=== PATIENT | female | born 1960 | race Asian ===

== ENCOUNTER 2018-06-08 15:47 | Emergency (ER) | payer MEDICAID, OTHER ==
[~2018-06-08] VITALS: Ht 162.6 cm; Wt 56.7 kg
[2018-06-08] MEDS ORDERED: Phenazopyridine 200mg tab ORAL ONE (16:15)
[2018-06-08 16:32] LABS: APPEARANCE,URINE CLEAR; BILIRUBIN, URINE NEGATIVE (NEGATIVE); COLOR,URINE PALE YELLOW; GLUCOSE, URINE (UA) NEGATIVE (NEGATIVE); KETONES,URINE NEGATIVE (NEGATIVE); LEUKOCYTE ESTERASE ,URINE 2+ (NEGATIVE); NITRITE,URINE NEGATIVE (NEGATIVE); PH,URINE 7 (4.5-8.0); PROTEIN,URINE NEGATIVE (NEGATIVE); UROBILINOGEN,URINE NORMAL MG/DL (0.0-1.0)
[2018-06-08 16:35] VITALS: BP 167/87
--- NOTE | 2018-06-08 16:51 | Emergency Room Report ---
History of Present Illness General Chief Complaint: Female Urogenital Problems Source: Patient Present Illness HPI 58-year-old female presents to the emergency department complaining of 2 out of 10 in severity dysuria with intermittent hematuria times one week. Patient also reports urinary frequency and urgency. Patient night is fevers, chills, low back pain, nausea, vomiting or abdominal tenderness. She denies history of renal disease reports hypertension and diabetes. Allergies: Coded Allergies: No Known Allergies (Unverified , 06/08/18) Patient History Past Medical History: see triage record Past Surgical History: none Pertinent Family History: none Last Menstrual Period: na Now: No Reviewed Nursing Documentation: PMH: Agreed; PSxH: Agreed Nursing Documentation-PMH Past Medical History: No History, Except For Hx Hypertension: Yes Hx Diabetes: Yes Hx Cancer: Yes - liver Review of Systems All Other Systems: negative except mentioned in HPI Physical Exam Vital Signs Date Time Temp Pulse Resp B/P (MAP) Pulse Ox O2 Delivery O2 Flow Rate FiO2 06/08/18 15:55 98.5 96 16 206/95 98 Room Air 98.4 Sp02 EP Interpretation: reviewed, normal General Appearance: no apparent distress, alert, GCS 15, non-toxic Head: normocephalic, atraumatic ENT: hearing grossly normal, normal voice Neck: full range of motion Respiratory: lungs clear, normal breath sounds, speaking full sentences Cardiovascular #1: regular rate, rhythm Gastrointestinal: normal bowel sounds, non tender, soft, non-distended, no guarding Rectal: deferred Genitourinary: normal inspection, no CVA tenderness Musculoskeletal: back normal, gait/station normal, normal range of motion, non- tender Neurologic: alert, oriented x3, responsive, motor strength/tone normal, sensory intact, speech normal, grossly normal Psychiatric: judgement/insight normal Skin: normal color, no rash, warm/dry, well hydrated Medical Decision Making PA Attestation Dr. Moses is my supervising Physician whom patient management has been discussed with. Diagnostic Impression: Primary Impression: Urinary tract infection Qualified Codes: N30.01 - Acute cystitis with hematuria Additional Impression: Urinary urgency ER Course Pt. presents to the ED c/o dysuria, and urinary urgency x 1 week. Ddx considered but are not limited to UTi , Pyelo, STI, Stone, Cystitis Vital signs: are WNL, pt. is afebrile H&PE are most consistent with UTI ORDERS: - UA labs are attached -symptomatic pt. with: elevated inflammatory markers, presence of few bacteria. as pt ED INTERVENTIONS: -Pyridium PO DISCHARGE: At this time pt. is stable for d/c to home. Will provide printed patient care instructions, and any necessary prescriptions. Care plan and follow up instructions have been discussed with the patient prior to discharge. Labs Test 06/08/18 16:10 Urine Color Pale yellow Urine Appearance Clear Urine pH 7 (4.5-8.0) Urine Specific [place] 1.005 (1.005-1.035) Urine Protein Negative (NEGATIVE) Urine Glucose (UA) Negative (NEGATIVE) Urine Ketones Negative (NEGATIVE) Urine Blood 2+ (NEGATIVE) Urine Nitrite Negative (NEGATIVE) Urine Bilirubin Negative (NEGATIVE) Urine Urobilinogen Normal MG/DL (0.0-1.0) Urine Leukocyte Esterase 2+ (NEGATIVE) Urine RBC 2-4 /HPF (0 - 2) Urine WBC 10-15 /HPF (0 - 2) Urine Squamous Epithelial Cells Moderate /LPF (NONE/OCC) Urine Bacteria Few /HPF (NONE) Last Vital Signs Date Time Temp Pulse Resp B/P (MAP) Pulse Ox O2 Delivery O2 Flow Rate FiO2 06/08/18 15:55 98.5 96 16 206/95 98 Room Air 98.4 Disposition: HOME, SELF-CARE Condition: Stable Scripts Nitrofurantoin Monohyd/M-Cryst* (MACROBID 100 MG*) 100 Mg Capsule 100 MG ORAL EVERY 12 HOURS for 5 Days, #10 CAP Prov: Mila Glass 06/08/18 Phenazopyridine Hcl* (PYRIDIUM*) 100 Mg Tablet 100 MG ORAL THREE TIMES A DAY, #9 TAB Prov: Mila Glass 06/08/18 Patient Instructions: Urinary Tract Infection Additional Instructions: Take medications as directed. Follow up with a Primary Care Provider in 3-5 days, even if your symptoms have resolved. --Please review list of primary care clinics, if you do not already have a primary care provider Return sooner to ED if new symptoms occur, or current symptoms become worse. - Please note that this Emergency Department Report was dictated using [employer] worker technology software, occasionally this can lead to erroneous entry secondary to interpretation by the dictation equipment. Mila Glass Jun 08, 2018 16:51
[2018-06-08] MEDS ORDERED: PHENAZOPYRIDIN100 MG ORAL (16:53)
[2018-06-08] MEDS ORDERED: NITROFURANTOIN100 M2 ORAL (16:53)
[2018-06-08 17:40] VITALS: BP 167/87
== END 2018-06-08 17:00 | disposition home or self-care (01) ==
LOC: EMR 16:20
DX: N39.0 Urinary tract infection, site not specified (principal); R30.0 Dysuria; I10 Essential (primary) hypertension; E11.9 Type 2 diabetes mellitus without complications; Z85.05 Personal history of malignant neoplasm of liver
CPT/HCPCS: 81003; 87086; 99283

== ENCOUNTER → 2018-11-02 | Emergency (ER) | payer OTHER ==
[~2018-11-02] VITALS: Ht 160 cm; Wt 54.4 kg
[~2018-11-02] MED LIST: LENVIMA4 MG PO; METFORMIN HCL500 M1 ORAL; Metoprolol 5mg/5ml Inj IVP ONE; NADOLOL20 MG ORAL; NITROFURANTOIN100 M2 ORAL; PHENAZOPYRIDIN100 MG ORAL
--- NOTE | 2018-11-02 10:38 | NUR ---
Note cathi in EDM - 11/02/18 at 1559 by [email or web address] ED Nurse Note: BLOOD SPECIMENS SENT DOWN TO THE LAB.
--- NOTE | 2018-11-02 10:48 | NUR ---
ED Nurse Note: AMBULATED IN TO ER FROM HOME WITH PT'S DAUGHTER DUE TO HIGH BLOOD PRESSURE. PER PT'S DAUGHTER, PT RECENTLY CHANGED MEDICATION FOR LIVER CANCER- LENVIMA 8MG QD AND CAUSED PT TO HAVE HIGH BP AND ALTER MENTAL STATUS. PT STOPPED TAKING THE MEDICATION LAST NIGHT AND A/OX4 AT THE BEDSIDE. DENIES CP AND SOB.
[2018-11-02 10:50] VITALS: BP 216/105
--- NOTE | 2018-11-02 10:55 | NUR ---
ED Nurse Note: BLOOD SPECIMENS SENT DOWN TO THE LAB.
--- NOTE | 2018-11-02 11:07 | Emergency Room Report ---
History of Present Illness General Chief Complaint: Hypertension Source: Patient, Family Member, Medical Record Present Illness HPI Patient presents with complaints of elevated blood pressure Daughter reports that the patient was diagnosed with liver cancer about 2 years ago she has started a new medications about 2 weeks ago and since then the patient's blood pressure appears to be elevated more than usual The daughter has flown in from [place] as she felt that her mom sounded more confused for the past 2 days however today appears to be better There was no reports of vomiting or diarrhea patient herself denies any chest pain denies any back or flank pain Allergies: Coded Allergies: No Known Allergies (Unverified , 06/08/18) Patient History Past Medical History: see triage record Pertinent Family History: none Reviewed Nursing Documentation: PMH: Agreed; PSxH: Agreed Nursing Documentation-PMH Past Medical History: No History, Except For Hx Hypertension: Yes Hx Diabetes: Yes Hx Cancer: Yes - liver Review of Systems All Other Systems: negative except mentioned in HPI Physical Exam Vital Signs Date Time Temp Pulse Resp B/P (MAP) Pulse Ox O2 Delivery O2 Flow Rate FiO2 11/02/18 10:41 97.5 89 16 183/87 96 Room Air Sp02 EP Interpretation: reviewed, normal General Appearance: no apparent distress - jaundice Head: normocephalic, atraumatic Eyes: bilateral eye PERRL, bilateral eye EOMI ENT: hearing grossly normal, normal pharynx, TMs + canals normal, uvula midline Neck: full range of motion, supple, no meningismus, no bony tend Respiratory: lungs clear, normal breath sounds, no rhonchi, no respiratory distress, no retraction, no accessory muscle use Cardiovascular #1: normal peripheral pulses, regular rate, rhythm, no edema, no gallop, no JVD, no murmur Gastrointestinal: normal bowel sounds, non tender, soft, non-distended, no guarding, no hernia, no pulsatile mass, no rebound Genitourinary: no CVA tenderness Musculoskeletal: normal inspection Neurologic: oriented x3, responsive, car supplier III-XII nml as tested, motor strength/ tone normal, sensory intact Psychiatric: mood/affect normal Skin: other - General jaundiced appearance Lymphatic: normal inspection, no adenopathy Medical Decision Making Diagnostic Impression: Primary Impression: Hypertension Additional Impressions: Hypertensive urgency, malignant Encephalopathy ER Course Given the patient's history and presentation multiple differentials and consideration CT head does not show any acute pathology Patient's blood work reveals a mildly elevated ammonia with some associated encephalopathy patient's blood pressure required acute intervention patient is in concerning presentation and will require further inpatient care Labs Test 11/02/18 11:10 White Blood Count 6.3 K/UL (4.8-10.8) Red Blood Count 4.13 M/UL (4.20-5.40) Hemoglobin 11.7 G/DL (12.0-16.0) Hematocrit 36.3 % (37.0-47.0) Mean Corpuscular Volume 88 FL (80-99) Mean Corpuscular Hemoglobin 28.3 PG (27.0-31.0) Mean Corpuscular Hemoglobin Concent 32.2 G/DL (32.0-36.0) Red Cell Distribution Width 17.2 % (11.6-14.8) Platelet Count 86 K/UL (150-450) Mean Platelet Volume 7.5 FL (6.5-10.1) Neutrophils (%) (Auto) % (45.0-75.0) Lymphocytes (%) (Auto) % (20.0-45.0) Monocytes (%) (Auto) % (1.0-10.0) Eosinophils (%) (Auto) % (0.0-3.0) Basophils (%) (Auto) % (0.0-2.0) Differential Total Cells Counted 100 Neutrophils % (Manual) 55 % (45-75) Lymphocytes % (Manual) 34 % (20-45) Monocytes % (Manual) 10 % (1-10) Eosinophils % (Manual) 1 % (0-3) Basophils % (Manual) 0 % (0-2) Band Neutrophils 0 % (0-8) Platelet Estimate Decreased Platelet Morphology Normal Anisocytosis 1+ Sodium Level 130 MMOL/L (136-145) Potassium Level 4.3 MMOL/L (3.5-5.1) Chloride Level 98 MMOL/L (98-107) Carbon Dioxide Level 25 MMOL/L (21-32) Anion Gap 7 mmol/L (5-15) Blood Urea Nitrogen 14 mg/dL (7-18) Creatinine 1.0 MG/DL (0.55-1.30) Estimat Glomerular Filtration Rate 56.9 mL/min (>60) Glucose Level 385 MG/DL (74-106) Calcium Level 9.3 MG/DL (8.5-10.1) Total Bilirubin 0.9 MG/DL (0.2-1.0) Aspartate Amino Transf (AST/SGOT) 42 U/L (15-37) Alanine Aminotransferase (ALT/SGPT) 41 U/L (12-78) Alkaline Phosphatase 162 U/L (46-116) Ammonia 36 umol/L (11-32) Total Creatine Kinase 73 U/L (26-308) Creatine Kinase MB 1.1 NG/ML (0.0-3.6) Creatine Kinase MB Relative Index 1.5 Troponin I 0.000 ng/mL (0.000-0.056) Total Protein 8.3 G/DL (6.4-8.2) Albumin 2.6 G/DL (3.4-5.0) Globulin 5.7 g/dL Albumin/Globulin Ratio 0.5 (1.0-2.7) Rhythm Strip Diag. Results EP Interpretation: yes Rate: 80 Rhythm: NSR, no PVC's, no ectopy CT/MRI/US Diagnostic Results CT/MRI/US Diagnostic Results : Impression CT head no acute disease Last Vital Signs Date Time Temp Pulse Resp B/P (MAP) Pulse Ox O2 Delivery O2 Flow Rate FiO2 11/02/18 10:41 97.5 89 16 183/87 96 Room Air Status: improved Disposition: [facility] Condition: Serious Shant Monroy Nov 02, 2018 11:07
--- NOTE | 2018-11-02 11:21 | NUR ---
ED Nurse Note: pt went down for CT
[2018-11-02 11:28] LABS: HEMATOCRIT 36.3 % (37.0-47.0); HEMOGLOBIN 11.7 G/DL (12.0-16.0); MEAN CORPUSCULAR VOLUME 88 FL (80-99); PLATELET COUNT 86 K/UL (150-450); RED BLOOD COUNT 4.13 M/UL (4.20-5.40); RED CELL DISTRIBUTION WIDTH 17.2 % (11.6-14.8); WHITE BLOOD COUNT 6.3 K/UL (4.8-10.8)
[2018-11-02 11:30] LABS: ANION GAP 7 mmol/L (5-15); BLOOD UREA NITROGEN 14 mg/dL (7-18); CALCIUM 9.3 MG/DL (8.5-10.1); CARBON DIOXIDE 25 MMOL/L (21-32); CHLORIDE 98 MMOL/L (98-107); POTASSIUM 4.3 MMOL/L (3.5-5.1); SODIUM 130 MMOL/L (136-145)
--- NOTE | 2018-11-02 11:31 | NUR ---
ED Nurse Note: PT CAME BACK FROM CT. REMAINS STABLE. DENIES CP NOR SOB.
[2018-11-02 11:44] LABS: ALANINE AMINOTRANSFERASE 41 U/L (12-78); ALBUMIN 2.6 G/DL (3.4-5.0); ALBUMIN/GLOBULIN RATIO 0.5 (1.0-2.7); ALKALINE PHOSPHATASE 162 U/L (46-116); ASPARTATE AMINO TRANSFERASE 42 U/L (15-37); BILIRUBIN,TOTAL 0.9 MG/DL (0.2-1.0); CKMB 1.1 NG/ML (0.0-3.6); CREATINE KINASE 73 U/L (26-308)
--- NOTE | 2018-11-02 12:32 | Diagnostic Imaging Report ---
Indication: Altered mental status Technique: Contiguous 5 mm thick transaxial imaging of the head obtained in a Siemens Sensation [address] scanner. Soft tissue and bone windows generated. Automatic Exposure Control was utilized. Total Dose length Product (DLP): 1200.[address] Dose Index Volume (CTDIvol): 70.38 mGy Comparison: none Findings: The size and configuration of the cortical sulci, basal cisterns, and ventricles are within normal limits for age. There is no mass effect, midline shift, or edema identified. There is no evidence of acute hemorrhage or abnormal intra-axial or extra-axial fluid collections. The bones and soft tissues are unremarkable. Impression: No mass effect, edema or acute bleed. The CT scanner at [facility] is accredited by the [employer] and the scans are performed using dose optimization techniques as appropriate to a performed exam including Automatic Exposure control.
[2018-11-02 13:07] VITALS: BP 205/84
--- NOTE | 2018-11-02 15:05 | NUR ---
HAND-OFF: Report given to STEPHANI Prieto. Pt and pt's daughter made aware of the transfer. Pt remains stable. BP of 183/102
--- NOTE | 2018-11-02 15:50 | NUR ---
ED Nurse Note: Patient's blood pressure was 194/85, Dr. Bran notified and aware, received orders for hydralazine
[2018-11-02 17:05] VITALS: BP 141/64
[2018-11-02 17:10] VITALS: BP 152/72
--- NOTE | 2018-11-02 17:10 | NUR ---
ED Nurse Note: Gave report to STEPHANI Powell
--- NOTE | 2018-11-03 17:25 | Cardiology Report ---
APPROVED REPORT EKG Measurement Heart [id number] Normal sinus rhythm Voltage criteria for left ventricular hypertrophy Nonspecific ST abnormality Abnormal ECG
== END | disposition short-term general hospital (02) ==
LOC: EMR 11:20
DX: I10 Essential (primary) hypertension (principal); I16.0 Hypertensive urgency; G93.40 Encephalopathy, unspecified; E11.9 Type 2 diabetes mellitus without complications; Z85.05 Personal history of malignant neoplasm of liver
CPT/HCPCS: 36415; 70450; 80053; 82140; 82550; 82553; 84484; 85007; 85025; 93005; 96374; 96375; 99284; J0360

== ENCOUNTER 2018-11-30 11:43 | Emergency (ER) | payer OTHER ==
[~2018-11-30] VITALS: Ht 160 cm; Wt 55.3 kg
[~2018-11-30 11:43] MED LIST changes: -Metoprolol 5mg/5ml Inj IVP ONE
[2018-11-30] MEDS ORDERED: RANITIDINE HCL150 M1 ORAL (11:53)
[2018-11-30] MEDS ORDERED: Lidocaine 2% Visc 15ml soln ORAL ONE (12:00)
[2018-11-30] MEDS ORDERED: Isovue-300 100ml vial INJ PRN (12:00)
[2018-11-30] MEDS ORDERED: Mylanta II UD 30ml ORAL ONE (12:00)
--- NOTE | 2018-11-30 12:00 | NUR ---
ED Nurse Note: Pt came into the Er w/ complaints of abdominal pain since 2200 last night. Pt is complaining of 10/10 pain. Non radiating. Pt denies diarrhea. Pt has had 3 episodes of vomiting since last night w/ nausea. Pt is A + O x4. Ambulatory. Skin warm to touch.
[2018-11-30 12:23] LABS: HEMATOCRIT 37.9 % (37.0-47.0); HEMOGLOBIN 12.7 G/DL (12.0-16.0); MEAN CORPUSCULAR VOLUME 88 FL (80-99); PLATELET COUNT 134 K/UL (150-450); RED BLOOD COUNT 4.31 M/UL (4.20-5.40); RED CELL DISTRIBUTION WIDTH 15.6 % (11.6-14.8); WHITE BLOOD COUNT 11.5 K/UL (4.8-10.8)
[2018-11-30 12:28] VITALS: BP 212/91
[2018-11-30 12:37] LABS: ANION GAP 13 mmol/L (5-15); BLOOD UREA NITROGEN 13 mg/dL (7-18); CALCIUM 9.4 MG/DL (8.5-10.1); CARBON DIOXIDE 23 MMOL/L (21-32); CHLORIDE 91 MMOL/L (98-107); CREATININE 0.9 MG/DL (0.55-1.30); POTASSIUM 4.4 MMOL/L (3.5-5.1); SODIUM 127 MMOL/L (136-145)
[2018-11-30 12:47] LABS: ALANINE AMINOTRANSFERASE 209 U/L (12-78); ALBUMIN/GLOBULIN RATIO 0.5 (1.0-2.7); ALKALINE PHOSPHATASE 501 U/L (46-116); ASPARTATE AMINO TRANSFERASE 299 U/L (15-37); BILIRUBIN,TOTAL 5.8 MG/DL (0.2-1.0)
--- NOTE | 2018-11-30 13:05 | NUR ---
ED Nurse Note: Pt went down to CT.
--- NOTE | 2018-11-30 13:10 | Emergency Room Report ---
History of Present Illness General Chief Complaint: Abdominal Pain Source: Patient Present Illness HPI This patient is accompanied by her . She states that her symptoms started around 10pm last night. She states that she is also had recurrent nausea and vomiting ever since 10 PM last night. She states that her pain is primarily in her upper abdomen. She has no history of similar pain. She denies fever or chills. She denies dysuria or hematuria. She denies diarrhea. She has no other complaints. Allergies: Coded Allergies: No Known Allergies (Unverified , 11/30/18) Patient History Past Medical History: see triage record, DM, HTN, other - Liver cancer Social History: Denies: smoking, alcohol use, drug use Last Menstrual Period: menopause Reviewed Nursing Documentation: PMH: Agreed; PSxH: Agreed Nursing Documentation-PMH Past Medical History: No History, Except For Hx Hypertension: Yes Hx Diabetes: Yes Hx Cancer: Yes - liver Review of Systems All Other Systems: negative except mentioned in HPI Physical Exam Vital Signs Date Time Temp Pulse Resp B/P (MAP) Pulse Ox O2 Delivery O2 Flow Rate FiO2 11/30/18 11:47 97.9 81 16 212/98 98 Room Air 11/30/18 12:28 100 Sp02 EP Interpretation: reviewed, normal General Appearance: no apparent distress, alert, GCS 15, non-toxic Head: normocephalic, atraumatic Eyes: bilateral eye normal inspection, bilateral eye PERRL ENT: hearing grossly normal, normal pharynx, no angioedema, normal voice Neck: full range of motion, supple/symm/no masses Respiratory: chest non-tender, lungs clear, normal breath sounds, no respiratory distress, no retraction, no accessory muscle use, speaking full sentences Cardiovascular #1: regular rate, rhythm, no edema Gastrointestinal: normal bowel sounds, soft, no guarding, no rebound, distended , tenderness - TTP in the epigastrium and RUQ Rectal: deferred Musculoskeletal: back normal, normal range of motion, non-tender Neurologic: alert, oriented x3, responsive, motor strength/tone normal, sensory intact, speech normal Psychiatric: judgement/insight normal, memory normal, mood/affect normal, no suicidal/homicidal ideation Skin: normal color, no rash, warm/dry, well hydrated Medical Decision Making Diagnostic Impression: Primary Impression: Gallstone pancreatitis Additional Impressions: Biliary obstruction Portal hypertension Varices, esophageal Liver cancer Cirrhosis ER Course Patient has a long complicated biliary history. Most of her care has been at [facility]. She has a history of cirrhosis and a liver mass. She also has a portal venous thrombosis. She has also undergone chemotherapy most recently last month. She is found to have findings on lab work and CT of the abdomen and pelvis concerning for a biliary obstruction. Possibly given that this patient has an elevated lipase this could be a gallstone pancreatitis versus some other type of obstruction. She also has findings on exam consistent with a history of liver cancer/mass and varices and portal hypertension and possibly a renal vein thrombosis. The patient is well-known with all of her specialist at [facility]. Plan for possible transfer to [facility] where she can see all of her specialist and have continuity of care. Laboratory Tests Test 11/30/18 12:07 11/30/18 12:10 Urine Color Yellow Urine Appearance Clear Urine pH 7 (4.5-8.0) Urine Specific [place] 1.010 (1.005-1.035) Urine Protein 3+ (NEGATIVE) H Urine Glucose (UA) 4+ (NEGATIVE) H Urine Ketones Negative (NEGATIVE) Urine Blood 2+ (NEGATIVE) H Urine Nitrite Negative (NEGATIVE) Urine Bilirubin Negative (NEGATIVE) Urine Urobilinogen Normal MG/DL (0.0-1.0) Urine Leukocyte Esterase 1+ (NEGATIVE) H Urine RBC 2-4 /HPF (0 - 2) H Urine WBC 2-4 /HPF (0 - 2) Urine Squamous Epithelial Cells Few /LPF (NONE/OCC) Urine Bacteria Few /HPF (NONE) White Blood Count 11.5 K/UL (4.8-10.8) H Red Blood Count 4.31 M/UL (4.20-5.40) Hemoglobin 12.7 G/DL (12.0-16.0) Hematocrit 37.9 % (37.0-47.0) Mean Corpuscular Volume 88 FL (80-99) Mean Corpuscular Hemoglobin 29.5 PG (27.0-31.0) Mean Corpuscular Hemoglobin Concent 33.5 G/DL (32.0-36.0) Red Cell Distribution Width 15.6 % (11.6-14.8) H Platelet Count 134 K/UL (150-450) L Mean Platelet Volume 7.3 FL (6.5-10.1) Neutrophils (%) (Auto) % (45.0-75.0) Lymphocytes (%) (Auto) % (20.0-45.0) Monocytes (%) (Auto) % (1.0-10.0) Eosinophils (%) (Auto) % (0.0-3.0) Basophils (%) (Auto) % (0.0-2.0) Differential Total Cells Counted 100 Neutrophils % (Manual) 84 % (45-75) H Lymphocytes % (Manual) 11 % (20-45) L Monocytes % (Manual) 5 % (1-10) Eosinophils % (Manual) 0 % (0-3) Basophils % (Manual) 0 % (0-2) Band Neutrophils 0 % (0-8) Platelet Estimate Decreased L Platelet Morphology Normal Anisocytosis 1+ Sodium Level 127 MMOL/L (136-145) L Potassium Level 4.4 MMOL/L (3.5-5.1) Chloride Level 91 MMOL/L (98-107) L Carbon Dioxide Level 23 MMOL/L (21-32) Anion Gap 13 mmol/L (5-15) Blood Urea Nitrogen 13 mg/dL (7-18) Creatinine 0.9 MG/DL (0.55-1.30) Estimate Glomerular Filtration Rate > 60 mL/min (>60) Glucose Level 355 MG/DL (74-106) H Calcium Level 9.4 MG/DL (8.5-10.1) Total Bilirubin 5.8 MG/DL (0.2-1.0) H Direct Bilirubin 3.0 MG/DL (0.0-0.3) H Aspartate Amino Transferase (AST) 299 U/L (15-37) H Alanine Aminotransferase (ALT) 209 U/L (12-78) H Alkaline Phosphatase 501 U/L (46-116) H Total Protein 9.3 G/DL (6.4-8.2) H Albumin 3.0 G/DL (3.4-5.0) L Globulin 6.3 g/dL Albumin/Globulin Ratio 0.5 (1.0-2.7) L Lipase 1922 U/L (73-393) H CT/MRI/US Diagnostic Results CT/MRI/US Diagnostic Results : Imaging Test Ordered: CT abd/pelvis, US Abdomen Last Vital Signs Date Time Temp Pulse Resp B/P (MAP) Pulse Ox O2 Delivery O2 Flow Rate FiO2 11/30/18 12:28 98.0 73 12 212/91 100 Room Air 100 Disposition: [facility] Condition: Serious Referrals: NON PHYSICIAN (PCP) Carole Hernandez DO Nov 30, 2018 13:10
[2018-11-30 13:11] LABS: APPEARANCE,URINE CLEAR; BILIRUBIN, URINE NEGATIVE (NEGATIVE); GLUCOSE, URINE (UA) 4+ (NEGATIVE); KETONES,URINE NEGATIVE (NEGATIVE); LEUKOCYTE ESTERASE ,URINE 1+ (NEGATIVE); NITRITE,URINE NEGATIVE (NEGATIVE); PH,URINE 7 (4.5-8.0); PROTEIN,URINE 3+ (NEGATIVE); UROBILINOGEN,URINE NORMAL MG/DL (0.0-1.0)
[2018-11-30 13:12] LABS: COLOR,URINE YELLOW
--- NOTE | 2018-11-30 14:22 | NUR ---
ED Nurse Note: Pt back from CT and US.
[2018-11-30 14:27] VITALS: BP 165/69
[2018-11-30] MEDS ORDERED: Piperacillin/Tazobactam 3.375 GM in NS 110 ML IVPB ONE (14:45)
--- NOTE | 2018-11-30 15:46 | NUR ---
E BUSINESS CONSULTANT LISA FROM [facility] CALLED REPORT GIVEN WILL CALL BACK WITH MD FOR REPORT
[2018-11-30 16:18] VITALS: BP 194/68
[2018-11-30] MEDS ORDERED: FERROUS SULFAT325 MG ORAL (17:33)
[2018-11-30] MEDS ORDERED: COZAAR50 MG ORAL (17:33)
[2018-11-30] MEDS ORDERED: ATORVASTATIN CA10 MG ORAL (17:33)
[2018-11-30 18:07] VITALS: BP 196/65
--- NOTE | 2018-11-30 18:12 | NUR ---
ED Nurse Note: Fredy Hodge () phone number [phone]
--- NOTE | 2018-11-30 18:28 | NUR ---
ED Nurse Note: Gave telephone report to STEPHANI Angel from [facility]. Awaiting for transport.
--- NOTE | 2018-11-30 18:30 | NUR ---
ED Nurse Note: Left a voicemail in 's phone to notify of pt's transport.
--- NOTE | 2018-11-30 19:11 | NUR ---
HAND-OFF: Report given to STEPHANI Keita.
--- NOTE | 2018-11-30 19:12 | NUR ---
ED Nurse Note: Received report from Emily/STEPHANI. Pt is A/O X 4. VSS, waitng for transfer to [facility].
[2018-11-30 20:17] VITALS: BP 181/69
--- NOTE | 2018-11-30 20:17 | NUR ---
TRANSFER TO [facility]/ room, 734: Patient transferred to [facility]/ room, 734# as ordered . Report given by day shift RN/ Emily. Belongings sent with pt , report given to EMS at bed side. /Naveen, at bed side.
--- NOTE | 2018-12-01 19:14 | Diagnostic Imaging Report ---
Indication: Abdominal pain Technique: Continuous helical transaxial imaging of the abdomen and pelvis was obtained from the lung bases to the pubic symphysis during intravenous contrast administration. Coronal 2-D reformats were also obtained. Study obtained in a Siemens sensation [address] Automatic Exposure Control was utilized. Total Dose length Product (DLP): [address] Dose Index Volume (CTDIvol): 0.15, 12.54 mGy Comparison: None Findings: The lung bases are essentially clear. There is intrahepatic biliary ductal dilatation and dilatation of the CBD. The distal part of the CBD appears slightly dense intraluminally suggestive of small stones or sludge. There is evidence of pancreatitis with enlargement of the pancreas and peripancreatic soft tissue stranding. When should consider the possibility of gallstone pancreatitis. The gallbladder is distended. There is some enhancement of the wall the gallbladder as well as portions of the biliary ducts. The main portal vein enhances well. There is a fairly abrupt transition at the main portal vein into a much smaller caliber portal vein. The more distal branches in the liver also appear small. In addition there are portosystemic varices that are extensive surrounding the distal esophagus and stomach. The SMV is also distended. The findings suggest portal hypertension and may be on the basis of partial portal vein thrombosis. This may be chronic. The other possibility is periportal fibrosis or cirrhosis. The spleen is unusual in appearance with lobulation. In the lateral segment the left lobe of the liver there is a small mass measuring 1.5 cm indeterminate. There is a small umbilical hernia containing fat. There is no evidence of bowel obstruction. Urinary bladder is unremarkable. Uterus is absent. Aortoiliac calcifications are present. There is no adrenal mass. There is no hydronephrosis. There is no ascites. IMPRESSION: Suspected gallstone pancreatitis with biliary ductal dilatation, particulate matter probably stones within the distal CBD and evidence of acute pancreatitis. Portal hypertension secondary to a dramatic caliber change between the main portal vein and the intrahepatic portal venous branches which may be due to chronic portal vein thrombosis, periportal fibrosis/cirrhosis. Extensive portosystemic varices. Atherosclerotic vascular disease. Apparent hysterectomy Small umbilical hernia containing fat. Critical value communication. Findings were discussed via telephone with the emergency room physician Dr. Segovia via telephone. The CT scanner at [facility] is accredited by the [employer] and the scans are performed using dose optimization techniques as appropriate to a performed exam including Automatic Exposure control.
--- NOTE | 2018-12-01 19:15 | Diagnostic Imaging Report ---
Indication:Abdominal pain Technique: Grayscale and duplex Doppler imaging of the abdomen performed. Comparison: None Findings: The pancreas is enlarged consistent with pancreatitis. This was confirmed on subsequent CT. Intrahepatic biliary ducts are prominent. There is thickening of the urinary bladder wall consistent with cystitis. There is nodularity of the spleen which was also noted by CT. There is no ascites. No hydronephrosis seen. There is flow within the main portal vein. This is better elucidated on the subsequent CT. Gallbladder is unremarkable. IMPRESSION: Acute pancreatitis. Biliary ductal dilatation with suspicion of choledocholithiasis on subsequent CT. Please refer to the CT report. Thickening of the bladder wall. Correlate for cystitis. Patency of the main portal vein demonstrated. Lobulated spleen
== END 2018-11-30 20:17 | disposition short-term general hospital (02) ==
LOC: EMR 12:45
DX: C22.8 Malignant neoplasm of liver, primary, unspecified as to type (principal); K85.10 Biliary acute pancreatitis without necrosis or infection; K83.1 Obstruction of bile duct; K76.6 Portal hypertension; K74.60 Unspecified cirrhosis of liver; I85.10 Secondary esophageal varices without bleeding; E11.9 Type 2 diabetes mellitus without complications
CPT/HCPCS: 36415; 74177; 76700; 80053; 81003; 82248; 83690; 85007; 85025; 96361; 96365; 96375; 99285; J2543; Q9967

== ENCOUNTER 2019-06-21 13:25 | Emergency (ER) | payer OTHER ==
[~2019-06-21] VITALS: Ht 157.5 cm; Wt 52.6 kg
[~2019-06-21 13:25] MED LIST changes: +ATORVASTATIN CA10 MG ORAL; +COZAAR50 MG ORAL; +FERROUS SULFAT325 MG ORAL; +RANITIDINE HCL150 M1 ORAL
--- NOTE | 2019-06-21 13:43 | NUR ---
Note undone in EDM - 06/21/19 at 1350 by [facility] ED Nurse Note: PT WALKED IN TO ER TODAY FROM HOME. AOX4. PT C/O MEDIAL ABDOMINAL PAIN, 5/10 X 1 WEEK AGO. PT DENIES NAUSEA, VOMITING, OR DIARRHEA. ACTIVE BOWEL SOUNDS IN ALL QUADRANTS. ABDOMEN NONDISTENDED AND NONTENDER TO PALPATION. LAST BM X THIS AM WHICH PT STATES WAS FORMED.
--- NOTE | 2019-06-21 13:43 | NUR ---
ED Nurse Note: PT WALKED IN TO ER TODAY FROM HOME. AOX4. PT C/O MEDIAL ABDOMINAL PAIN, 5/10 X 1 WEEK AGO. PT DENIES NAUSEA, VOMITING, OR DIARRHEA. ACTIVE BOWEL SOUNDS IN ALL QUADRANTS. ABDOMEN NONDISTENDED BUT TENDER TO PALPATION. LAST BM X THIS AM WHICH PT STATES WAS FORMED. ON ASSESSMENT, PT'S UMBILICUS APPEARS ECCHYMOTIC. SITE NOT HOT TO TOUCH. NO ACTIVE DRAINAGE OR BLEEDING BUT PT STATES THAT HAS BEEN THAT WAY FOR 1 WEEK - SAME TIME THE ONSET OF ABDOMINAL PAIN.
[2019-06-21 13:44] VITALS: BP 158/74
[2019-06-21] MEDS ORDERED: Dicyclomine HCl 10mg/5ml oral soln ORAL ONE (13:45)
[2019-06-21] MEDS ORDERED: Mylanta II UD 30ml ORAL ONE (13:45)
[2019-06-21] MEDS ORDERED: Omnipaque-300 100ml vial INJ PRN (13:45)
[2019-06-21] MEDS ORDERED: Lidocaine 2% Visc 15ml soln ORAL ONE (13:45)
[2019-06-21 14:06] LABS: APPEARANCE,URINE CLOUDY; BILIRUBIN, URINE NEGATIVE (NEGATIVE); GLUCOSE, URINE (UA) NEGATIVE (NEGATIVE); KETONES,URINE NEGATIVE (NEGATIVE); LEUKOCYTE ESTERASE ,URINE 2+ (NEGATIVE); NITRITE,URINE NEGATIVE (NEGATIVE); PH,URINE 6 (4.5-8.0); PROTEIN,URINE 3+ (NEGATIVE); UROBILINOGEN,URINE 1 MG/DL (0.0-1.0)
[2019-06-21 14:10] LABS: COLOR,URINE RED
[2019-06-21 14:12] LABS: BASOPHILS % (AUTO) 0.7 % (0.0-2.0); EOSINOPHILS % (AUTO) 1.4 % (0.0-3.0); HEMATOCRIT 28.6 % (37.0-47.0); HEMOGLOBIN 9.3 G/DL (12.0-16.0); LYMPHOCYTES % (AUTO) 15.9 % (20.0-45.0); MEAN CORPUSCULAR VOLUME 90 FL (80-99); MONOCYTES % (AUTO) 10.9 % (1.0-10.0); NEUTROPHILS % (AUTO) 71.1 % (45.0-75.0); PLATELET COUNT 140 K/UL (150-450); RED BLOOD COUNT 3.16 M/UL (4.20-5.40); RED CELL DISTRIBUTION WIDTH 13.3 % (11.6-14.8); WHITE BLOOD COUNT 7.4 K/UL (4.8-10.8)
[2019-06-21 14:16] VITALS: BP 124/102
[2019-06-21 14:16] LABS: ANION GAP 6 mmol/L (5-15); BLOOD UREA NITROGEN 10 mg/dL (7-18); CALCIUM 11.9 MG/DL (8.5-10.1); CARBON DIOXIDE 25 MMOL/L (21-32); CHLORIDE 99 MMOL/L (98-107); CREATININE 0.8 MG/DL (0.55-1.30); POTASSIUM 4.1 MMOL/L (3.5-5.1); SODIUM 130 MMOL/L (136-145)
[2019-06-21 14:17] LABS: INR 1.1 (0.9-1.1)
[2019-06-21 14:27] LABS: ALANINE AMINOTRANSFERASE 42 U/L (12-78); ALBUMIN 2.6 G/DL (3.4-5.0); ALBUMIN/GLOBULIN RATIO 0.6 (1.0-2.7); ALKALINE PHOSPHATASE 204 U/L (46-116); ASPARTATE AMINO TRANSFERASE 66 U/L (15-37); BILIRUBIN,DIRECT 0.5 MG/DL (0.0-0.3); BILIRUBIN,TOTAL 1.1 MG/DL (0.2-1.0)
--- NOTE | 2019-06-21 14:35 | NUR ---
ED Nurse Note: PT TO CT VIA WHEELCHAIR.
--- NOTE | 2019-06-21 14:38 | Emergency Room Report ---
History of Present Illness General Chief Complaint: Abdominal Pain Source: Patient Present Illness HPI This patient has a history of cirrhosis and liver cancer. She is undergoing chemotherapy. She did have a history of an episode of gallstone pancreatitis 5 months ago. She said she underwent CP with retrieval of the gallstone. She did not have her gallbladder removed at that time. She presents today for 1 week of ongoing abdominal pain. Also she notes that there is an area of swelling and discoloration associated with her umbilicus. She is very tender in that location. She complains of chills but denies fever. She denies nausea or vomiting. She denies chest pain or shortness of breath. She denies dysuria or hematuria. She has had normal bowel movements. She has no other complaints. Allergies: Coded Allergies: No Known Allergies (Unverified , 11/30/18) Patient History Past Medical History: see triage record, DM, HTN, other - Cirrhosis, Liver CA, hx of gallstone pancreatitis Social History: Denies: smoking, alcohol use, drug use Reviewed Nursing Documentation: PMH: Agreed; PSxH: Agreed Nursing Documentation-PMH Past Medical History: No History, Except For Hx Hypertension: Yes Hx Diabetes: Yes Hx Cancer: Yes - liver Review of Systems All Other Systems: negative except mentioned in HPI Physical Exam Vital Signs Date Time Temp Pulse Resp B/P (MAP) Pulse Ox O2 Delivery O2 Flow Rate FiO2 06/21/19 13:28 98.2 83 19 161/77 (105) 98 Room Air Sp02 EP Interpretation: reviewed, normal General Appearance: no apparent distress, alert, GCS 15, non-toxic Head: normocephalic, atraumatic Eyes: bilateral eye normal inspection, bilateral eye PERRL ENT: hearing grossly normal, normal pharynx, no angioedema, normal voice Neck: full range of motion, supple/symm/no masses Respiratory: chest non-tender, lungs clear, normal breath sounds, no respiratory distress, no retraction, no accessory muscle use, speaking full sentences Cardiovascular #1: regular rate, rhythm, no edema Gastrointestinal: normal bowel sounds, soft, no guarding, no rebound, distended , tenderness - TTP at the umbilicus with erythema, +bulging, +dark discoloration. Rectal: deferred Genitourinary: normal inspection, no CVA tenderness Musculoskeletal: back normal, gait/station normal, normal range of motion, non- tender Neurologic: alert, oriented x3, responsive, motor strength/tone normal, sensory intact, speech normal Psychiatric: judgement/insight normal, memory normal, mood/affect normal, no suicidal/homicidal ideation Skin: no rash, other - See above in GI exam. Medical Decision Making Diagnostic Impression: Primary Impression: Hematuria Additional Impressions: Anemia Metastatic cancer ER Course This patient has known metastatic cancer. She is stage IV. She is found to have a mass at the umbilicus identified on CT of the abdomen and pelvis. The patient CT scan also shows significant worsening and enlargement of the multiple tumors throughout her abdomen. The patient is also found to have anemia that is significantly worse than previous. Possibly this is secondary to hematuria as she may have metastatic cancer to her bladder. Regardless, given the patient's coagulopathy related to her cirrhosis and significant varices and her chronic illnesses, I felt that this patient should be admitted to observation to assess the stability of her anemia. The patient's insurance company requested her transfer to [facility]. The patient is stable for transfer. Laboratory Tests Test 06/21/19 13:55 White Blood Count 7.4 K/UL (4.8-10.8) Red Blood Count 3.16 M/UL (4.20-5.40) L Hemoglobin 9.3 G/DL (12.0-16.0) L Hematocrit 28.6 % (37.0-47.0) L Mean Corpuscular Volume 90 FL (80-99) Mean Corpuscular Hemoglobin 29.3 PG (27.0-31.0) Mean Corpuscular Hemoglobin Concent 32.5 G/DL (32.0-36.0) Red Cell Distribution Width 13.3 % (11.6-14.8) Platelet Count 140 K/UL (150-450) L Mean Platelet Volume 5.7 FL (6.5-10.1) L Neutrophils (%) (Auto) 71.1 % (45.0-75.0) Lymphocytes (%) (Auto) 15.9 % (20.0-45.0) L Monocytes (%) (Auto) 10.9 % (1.0-10.0) H Eosinophils (%) (Auto) 1.4 % (0.0-3.0) Basophils (%) (Auto) 0.7 % (0.0-2.0) Prothrombin Time 11.8 SEC (9.30-11.50) H Prothrombin Time INR 1.1 (0.9-1.1) PTT 25 SEC (23-33) Urine Color Red Urine Appearance Cloudy Urine pH 6 (4.5-8.0) Urine Specific [place] 1.015 (1.005-1.035) Urine Protein 3+ (NEGATIVE) H Urine Glucose (UA) Negative (NEGATIVE) Urine Ketones Negative (NEGATIVE) Urine Blood 5+ (NEGATIVE) H Urine Nitrite Negative (NEGATIVE) Urine Bilirubin Negative (NEGATIVE) Urine Urobilinogen 1 MG/DL (0.0-1.0) H Urine Leukocyte Esterase 2+ (NEGATIVE) H Urine RBC Tntc /HPF (0 - 2) H Urine WBC 2-4 /HPF (0 - 2) Urine Squamous Epithelial Cells Occasional /LPF Urine Bacteria None /HPF (NONE) Sodium Level 130 MMOL/L (136-145) L Potassium Level 4.1 MMOL/L (3.5-5.1) Chloride Level 99 MMOL/L (98-107) Carbon Dioxide Level 25 MMOL/L (21-32) Anion Gap 6 mmol/L (5-15) Blood Urea Nitrogen 10 mg/dL (7-18) Creatinine 0.8 MG/DL (0.55-1.30) Estimate Glomerular Filtration Rate > 60 mL/min (>60) Glucose Level 224 MG/DL (74-106) H Lactic Acid Level Pending Calcium Level 11.9 MG/DL (8.5-10.1) H Total Bilirubin 1.1 MG/DL (0.2-1.0) H Direct Bilirubin 0.5 MG/DL (0.0-0.3) H Aspartate Amino Transferase (AST) 66 U/L (15-37) H Alanine Aminotransferase (ALT) 42 U/L (12-78) Alkaline Phosphatase 204 U/L (46-116) H Troponin I 0.000 ng/mL (0.000-0.056) Total Protein 7.1 G/DL (6.4-8.2) Albumin 2.6 G/DL (3.4-5.0) L Globulin 4.5 g/dL Albumin/Globulin Ratio 0.6 (1.0-2.7) L Lipase 297 U/L (73-393) EKG Diagnostic Results Rate: normal Rhythm: NSR ST Segments: no acute changes Rhythm Strip Diag. Results EP Interpretation: yes Rate: 80's Rhythm: NSR, no PVC's, no ectopy Chest X-Ray Diagnostic Results Chest X-Ray Diagnostic Results : Chest X-Ray Ordered: Yes # of Views/Limited/Complete: 1 View Indication: Other EP Interpretation: No Interpretation: other - mild interstitial congestion Impression: Other - See above. Electronically Signed by: Carole Hernandez DO CT/MRI/US Diagnostic Results CT/MRI/US Diagnostic Results : Imaging Test Ordered: CT abd/pelvis: Impression Impression: Limited assessment of the GI tract, due to lack of enteric contrast administration Evidence of disseminated malignancy, with multiple masses within the liver, bilateral pulmonary nodules, extensive masses within the peritoneal space and mesentery, peripancreatic lymphadenopathy, retroperitoneal and pelvic lymphadenopathy. Large subcutaneous mass just inferior to the xiphoid just to the right of midline. This should be clinically evident. Given the extent of malignancy elsewhere, this could conceivably represent a primary melanoma. This could also represent a metastatic deposit or an unrelated cutaneous lesion. Evidence of hepatic cirrhosis, with hepatic surface nodularity. Evidence of portal hypertension, also previously described, with massive periesophageal and perigastric varices as well as mesenteric congestion, splenomegaly, and ascites. Focal dilatation of the left intrahepatic bile ducts. This may indicate focal tumor infiltration at the hepatic hilum with resultant biliary obstruction Small caliber portal vein and branches likely related to the above. Remote portal vein thrombosis also possibility as previously reported Diffusely prominent pancreas without discrete abnormality or definite inflammatory changes. Correlate with pancreatic enzymes Bladder wall thickening, raises possibility of cystitis Equivocal slight wall thickening of the distal colon, could indicate colitis but is more likely artifact of under distention Evidence of prior hysterectomy Last Vital Signs Date Time Temp Pulse Resp B/P (MAP) Pulse Ox O2 Delivery O2 Flow Rate FiO2 06/21/19 14:16 98.2 81 21 124/102 100 Room Air Disposition: XFER SHT-TRM HOSP Condition: Stable Referrals: NON PHYSICIAN (PCP) Carole Hernandez DO Jun 21, 2019 14:38
--- NOTE | 2019-06-21 14:55 | NUR ---
ED Nurse Note: PT BACK FROM CT VIA WHEELCHAIR.
--- NOTE | 2019-06-21 15:02 | NUR ---
ED Nurse Note: LACTIC REFLEX COLLECTED AND SENT TO LAB.
--- NOTE | 2019-06-21 15:05 | NUR ---
ED Nurse Note: XRAY AT BEDSIDE.
[2019-06-21 16:00] VITALS: BP 146/67
--- NOTE | 2019-06-21 16:00 | Diagnostic Imaging Report ---
Clinical Indication: Abdominal pain Technique: No oral contrast utilized, per emergency room physician request IV administration nonionic contrast. Venous phase spiral acquisition obtained through the abdomen and pelvis. Multiplanar reconstructions were generated. Total dose length product 817 mGycm. CTDIvol(s) 14 mGy. Dose reduction achieved using automated exposure control Comparison: 11/30/2018 Findings: The liver demonstrates an area of low-attenuation at the inferior aspect of segment 5 which as a multinodular border, measures roughly 3.2 cm long axis dimension, is not evident previously. Faint and ill-defined area of low-attenuation is seen in segment 2 near the dome, measures roughly 3 cm long axis dimension, and at least 2 other similar areas adjacent to the gallbladder fossa. A 4 cm similar lesion is seen laterally in segment 2. Numerous other smaller areas of low-attenuation are also seen scattered throughout the liver, most of which are not evident previously. A lesion in inferior segment 3 was visible on the prior exam. There is focal biliary ductal dilatation In the left hepatic lobe which is significantly increased in extent and severity from the prior exam. There are nodules on the surface of the liver which were not evident previously. The gallbladder is currently nondistended. There is no significant extrahepatic biliary ductal dilatation. There is hepatic surface nodularity which appears increased in extent from the prior exam. There is a small to moderate amount of ascites fluid present. This is increased from the prior exam, however. Massive perigastric and periesophageal varices are again demonstrated. Some varices are also seen adjacent to the orifice of the inferior vena cava. There is diffuse congestion of the mesentery. As reported previously, the main portal vein is patent but very small in caliber, and the right and left branches are even smaller in caliber. There is adenopathy within the lesser sac. This is increased in extent from the prior exam, largest node currently measuring 3.3 cm long axis dimension by 1.4 cm short axis dimension multiple masses are seen just under the dome of the left hemidiaphragm. There appears to be a large cluster of masses in this area which in aggregate measures nearly 6 cm in diameter. Similar masses are seen along the peritoneal surface anterior to the spleen. The spleen itself is enlarged and demonstrates marked surface lobulation. This finding is also evident previously. Necrotic appearing masses are seen posterior to the aorta at the aortic hiatus. Multiple masses are seen under the posterior right hemidiaphragm posterior to the right hepatic lobe. Multiple other masses are seen within the peritoneal space in the right paracolic gutter. A few masses are also seen within the mesenteric root. A necrotic appearing lesion is seen in the left adnexal region, not evident previously. There is also necrotic appearing lymphadenopathy in the right internal iliac chain. The pancreas is diffusely prominent without discrete abnormality. The adrenals and kidneys are unremarkable. The bladder demonstrates wall thickening. This is similar to the previous exam. The uterus is absent. No pelvic mass or adenopathy. Lack of enteric contrast limits assessment of the GI tract. There is equivocal slight wall thickening of the distal descending and proximal sigmoid colon, as well as of the distal transverse colon and splenic flexure. This is probably a artifact of under distention, however. The appendix is not definitely identified, but there are no findings to suggest acute appendicitis. No small bowel distention. No free intraperitoneal gas is evident. Small nodules are seen at the lung bases. These are not evident previously. There is a 19 mm subcutaneous lesion just inferior to the xiphoid. This is increased in size since prior exam. This should be clinically evident. The bones are unremarkable. Impression: Limited assessment of the GI tract, due to lack of enteric contrast administration Evidence of disseminated malignancy, with multiple masses within the liver, bilateral pulmonary nodules, extensive masses within the peritoneal space and mesentery, peripancreatic lymphadenopathy, retroperitoneal and pelvic lymphadenopathy. Large subcutaneous mass just inferior to the xiphoid just to the right of midline. This should be clinically evident. Given the extent of malignancy elsewhere, this could conceivably represent a primary melanoma. This could also represent a metastatic deposit or an unrelated cutaneous lesion. Evidence of hepatic cirrhosis, with hepatic surface nodularity. Evidence of portal hypertension, also previously described, with massive periesophageal and perigastric varices as well as mesenteric congestion, splenomegaly, and ascites. Focal dilatation of the left intrahepatic bile ducts. This may indicate focal tumor infiltration at the hepatic hilum with resultant biliary obstruction Small caliber portal vein and branches likely related to the above. Remote portal vein thrombosis also possibility as previously reported Diffusely prominent pancreas without discrete abnormality or definite inflammatory changes. Correlate with pancreatic enzymes Bladder wall thickening, raises possibility of cystitis Equivocal slight wall thickening of the distal colon, could indicate colitis but is more likely artifact of under distention Evidence of prior hysterectomy The CT scanner at [facility] is accredited by the [employer] and the scans are performed using protocols designed to limit radiation exposure to as low as reasonably achievable to attain images of sufficient resolution adequate for diagnostic evaluation.
--- NOTE | 2019-06-21 17:00 | Diagnostic Imaging Report ---
Indication: Chest pain Technique: One view of the chest Comparison: none Findings: There is mild interstitial edema. The heart is upper limits of normal in size. No focal airspace consolidation. No definite effusion Impression: Interstitial congestion
[2019-06-21 18:15] VITALS: BP 158/54
--- NOTE | 2019-06-21 18:35 | NUR ---
ED Nurse Note: PT'S SON: [phone]
--- NOTE | 2019-06-21 19:04 | NUR ---
HAND-OFF: REPORT GIVEN TO STEPHANI POSEY.
--- NOTE | 2019-06-21 19:06 | NUR ---
ED Nurse Note: Received report from Stephen STYLES. Pt alert, oriented. No SOB. Breathing even and unlabored. Afebrile. Waitng for transportation.
[2019-06-21 19:07] VITALS: BP 152/90
[2019-06-21 20:50] VITALS: BP 152/90
--- NOTE | 2019-06-21 20:50 | NUR ---
ED Nurse Note: Pt cleared to be transferred to [facility], accompanied by 2 EMS via [place]. Report given to Marcell STYLES. Pt alert and oriented, verbally responsive. No SOB. Breathing even and unlabored. IV line on Rt AC 20g patent and intact. Patient able to walk with minimal assistance. Belongings was given to the patient. VSS.
== END 2019-06-21 20:50 | disposition short-term general hospital (02) ==
LOC: EMR 14:16 → EDBEDREQ 18:36 → EMR 20:50
DX: C22.8 Malignant neoplasm of liver, primary, unspecified as to type (principal); C79.9 Secondary malignant neoplasm of unspecified site; R31.9 Hematuria, unspecified; D64.9 Anemia, unspecified; E11.9 Type 2 diabetes mellitus without complications; I10 Essential (primary) hypertension; K74.60 Unspecified cirrhosis of liver; R18.8 Other ascites; Z90.710 Acquired absence of both cervix and uterus; K76.6 Portal hypertension; R16.1 Splenomegaly, not elsewhere classified
CPT/HCPCS: 36415; 71045; 74177; 80053; 81003; 82248; 83605; 83690; 84484; 85025; 85610; 85730; 87040; 93005; 96361; 96374; 99284; Q9967; S0028; J7030